=== PATIENT | male | born 1945 | race Caucasian/White ===

== ENCOUNTER → 2016-09-28 | Outpatient (CLI) | payer OTHER, MEDICARE ==
[2016-06-21 12:07] VITALS: BP 164/77
--- NOTE | 2016-09-28 10:54 | RAD ---
HISTORY: Preoperative evaluation Study: Two view chest Comparison: 06/02/2016 Findings: Stable dual-chamber pacemaker. ACDF hardware is noted. The lungs are clear without consolidation, ef fusion or pneumothorax. The cardiac and mediastinal contours are within normal limits. The soft tis sues are unremarkable. Prominent atherosclerotic calcifications at the aortic knob. IMPRESSION: 1. Stable chest without acute abnormality. Reported By:
[2016-09-28 11:11] LABS: BILIRUBIN,URINE NEGATIVE (NEGATIVE); BLOOD/HEMOGLOBIN,URINE NEGATIVE (NEGATIVE); GLUCOSE, URINE 4+ (NEGATIVE); KETONES,URINE NEGATIVE (NEGATIVE); LEUKOCYTE ESTERASE ,URINE NEGATIVE (NEGATIVE); NITRITES,URINE NEGATIVE (NEGATIVE); PROTEIN,URINE NEGATIVE (NEGATIVE); UROBILINOGEN,URINE NORMAL (NORMAL)
[2016-09-28 11:17] LABS: BASOPHILS # (AUTO) 0.1 X10^3/uL (0.0-0.1); BASOPHILS % (AUTO) 1.7 % (0.2-1.0); EOSINOPHILS # (AUTO) 0.3 x10^3/uL (0.0-0.2); EOSINOPHILS % (AUTO) 6.6 % (0.9-2.9); HEMATOCRIT 42.7 % (42.0-54.0); HEMOGLOBIN 14.6 g/dL (13.5-18.0); LYMPHOCYTES # (AUTO) 1.7 X10^3/uL (1.3-2.9); LYMPHOCYTES % (AUTO) 34.8 % (21.0-51.0); MEAN CORPUSCULAR HGB CONC 34.3 g/dL (33.0-35.0); MEAN CORPUSCULAR VOLUME 84.8 fL (80.0-100.0); MEAN PLATELET VOLUME 8.3 fL (7.4-11.0); MONOCYTES # (AUTO) 0.5 x10^3/uL (0.3-0.8); MONOCYTES % (AUTO) 10.3 % (0.0-13.0); NEUTROPHILS # (AUTO) 2.3 x10^3/uL (2.2-4.8); NEUTROPHILS % (AUTO) 46.6 % (42.0-75.0); PLATELET COUNT 194 X10^3/uL (150.0-450.0); RED BLOOD COUNT 5.04 X10^6/uL (4.7-6.0); RED CELL DISTRIBUTION WIDTH 14.5 % (11.6-16.5)
[2016-09-28 11:25] LABS: ALANINE AMINOTRANSFERASE 48 Units/L (12-78); ALBUMIN 3.7 g/dL (3.4-5.0); ALKALINE PHOSPHATASE 95 Units/L (46-116); ASPARTATE AMINO TRANSFERASE 27 Units/L (15-37); BLOOD UREA NITROGEN 12 mg/dL (7-18); CALCIUM 8.9 mg/dL (8.5-10.1); CARBON DIOXIDE 28.1 mmol/L (21-32); CHLORIDE 103 mmol/L (98-107); COR NA(FOR HYPERGLY) 145 mmol/L (136-145); CREATININE 1.05 mg/dL (0.70-1.30); GLUCOSE 249 mg/dL (65-99); SODIUM 141 mmol/L (136-145); TOTAL PROTEIN 7.2 g/dL (6.4-8.2); eGFR BLACK RACES > 60 (>60); eGFR NON BLACK RACES > 60 (>60)
[2016-09-28 11:31] LABS: APPEARANCE,URINE HAZY (CLEAR); COLOR,URINE YELLOW (YELLOW); RBC,URINE 0-2 /HPF (NEGATIVE)
[2016-09-28 11:32] LABS: BACTERIA,URINE TRACE /HPF (NEGATIVE); MUCUS,URINE FEW /HPF (NEGATIVE); SQUAMOUS EPITHELIAL CELL,UR RARE /HPF (NEGATIVE)
== END ==
LOC: LAB 10:17
PROVIDERS: ATTEND Psychiatry & Neurology Neurology
DX: Z01.818 Encounter for other preprocedural examination (principal); Z01.810 Encounter for preprocedural cardiovascular examination; Z01.811 Encounter for preprocedural respiratory examination; Z79.899 Other long term (current) drug therapy; Z79.01 Long term (current) use of anticoagulants; Z11.8 Encounter for screening for other infectious and parasitic diseases; B95.7 Other staphylococcus as the cause of diseases classified elsewhere; M71.812 Other specified bursopathies, left shoulder; M67.912 Unspecified disorder of synovium and tendon, left shoulder; M17.12 Unilateral primary osteoarthritis, left knee
CPT/HCPCS: 36415; 71020; 80053; 81001; 85025; 85610; 85730; 86850; 86900; 86901; 87641; 93005; 93010

== ENCOUNTER 2016-10-04 07:19 | Day surgery (SDC) | payer OTHER, MEDICARE ==
[2016-10-04] MEDS ORDERED: D5 LR 1000 ML 1,000 ML IV ONE (07:32)
[2016-10-04] MEDS ORDERED: NS 50 ML IV + SPIKE MINIBAG* 50 ML IV ONE (07:33)
[2016-10-04] MEDS ORDERED: ANCEF VIAL 1 GM ONE (07:35)
[2016-10-04] MEDS ORDERED: MARCAINE 0.25% WITH EPI IJ ONE (07:48)
[2016-10-04] MEDS ORDERED: KENALOG INJ 40 MG ONE (07:48)
[2016-10-04] MEDS ORDERED: NAROPIN 0.75% ONE (08:02)
[2016-10-04] MEDS ORDERED: XYLOCAINE 1 % (PLAIN) ONE (08:02)
[2016-10-04] MEDS ORDERED: FENTANYL INJ 100 mcg ONE (08:02)
[2016-10-04] MEDS ORDERED: NS 1000 ML 1,000 ML ONE (08:05)
[2016-10-04] MEDS ORDERED: FENTANYL INJ 250 mcg ONE (08:50)
[2016-10-04] MEDS ORDERED: NS IRRIGATION 3000 ML 3,000 ML with ADRENALINE CHL INJ 1 MG IR ONE ×20 (08:55→09:30)
[2016-10-04] MEDS ORDERED: NS IRRIGATION 3000 ML 3,000 ML with BACITRACIN VIAL 50,000 UNT IR ONE ×2 (08:56)
[2016-10-04] MEDS ORDERED: MARCAINE 0.25% INJ ONE (09:12)
[2016-10-04] MEDS ORDERED: BENADRYL INJ 50 MG VIAL IVP PRN (09:59)
[2016-10-04] MEDS ORDERED: DILAUDID INJ IVP PRN (09:59)
[2016-10-04] MEDS ORDERED: ZOFRAN INJ 4 MG VIAL IVP PRN (09:59)
[2016-10-04 11:04] VITALS: BP 139/86
[2016-10-04] MEDS ORDERED: SUPRANE IN ONE (16:06)
[2016-10-04] MEDS ORDERED: QUELICIN (OR ANECTINE) ONE (16:06)
[2016-10-04] MEDS ORDERED: DIPRIVAN VIAL ONE (16:06)
[2016-10-04] MEDS ORDERED: VERSED ONE (16:06)
[2016-10-04] MEDS ORDERED: XYLOCAINE 2 % (PLAIN) ONE (16:06)
[2016-10-04] MEDS ORDERED: NORMODYNE INJ 100 MG VIAL ONE (16:06)
== END 2016-10-04 11:30 | disposition home or self-care (01) ==
LOC: SURG1 07:19
PROVIDERS: ATTEND Specialist
PROC: 0MN24ZZ Release Left Shoulder Bursa and Ligament, Percutaneous Endoscopic Approach (ICD-10-PCS; principal; 2016-10-04 08:30)
PROC: 0PBB4ZZ Excision of Left Clavicle, Percutaneous Endoscopic Approach (ICD-10-PCS; principal; 2016-10-04 08:30)
DX: M75.42 Impingement syndrome of left shoulder (principal); M19.012 Primary osteoarthritis, left shoulder
CPT/HCPCS: 64415; 99100; A4222; S0020; J0170; J0330; J0690; J2001; J2250; J3010; J3301; J3490; J7120